=== PATIENT | female | born 1980 | race American Indian/Alaskan Native ===

== ENCOUNTER 2017-12-20 12:14 | Emergency (ER) | payer BC, OTHER ==
[2017-12-20 12:24] VITALS: BP 132/90; PULSE 79; RESP 16; TEMP 98.4; O2SAT 100
--- NOTE | 2017-12-20 12:51 | ED PDOC ---
Lower Extremity Pain/Injury Time Seen by Provider: 12/20/17 12:35 Chief Complaint (Nursing): Lower Extremity Problem/Injury Chief Complaint (Provider): left foot injury History Per: Patient Additional Complaint(s): 37 y/o female presents with superficial laceration to plantar aspect of left foot. Patient stepped on broken glass at 4:30 AM and removed a small piece of glass from the wound. She presents for further evaluation. Patient states tetanus is up-to-date. She denies any foreign body sensation at present. No active bleeding noted. PMD: none Past Medical History Reviewed: Historical Data, Nursing Documentation, Vital Signs Vital Signs: Last Vital Signs Temp 98.4 F 12/20/17 12:22 Pulse 79 12/20/17 12:22 Resp 16 12/20/17 12:22 BP 132/90 12/20/17 12:22 Pulse Ox 100 12/20/17 12:22 - Medical History PMH: No Chronic Diseases - Family History Family History: States: No Known Family Hx - Living Arrangements Living Arrangements: With Family - Social History Current smoker - smoking cessation education provided: No Alcohol: None Drugs: Denies - Immunization History Hx Tetanus Toxoid Vaccination: Yes - Home Medications Home Medications: Ambulatory Orders Medication Instructions Recorded Clindamycin [Cleocin] 300 mg PO TID #21 cap 12/20/17 - Allergies Allergies/Adverse Reactions: Allergies Allergy/AdvReac Type Severity Reaction Status Date / Time No Known Allergies Allergy Verified 12/20/17 12:22 Review of Systems ROS Statement: Except As Marked, All Systems Reviewed And Found Negative Musculoskeletal: Positive for: Foot Pain (left foot open wound) Physical Exam - Reviewed Nursing Documentation Reviewed: Yes Vital Signs Reviewed: Yes - Physical Exam Appears: Positive for: Well, Non-toxic, No Acute Distress Skin: Negative for: Rash Eye Exam: Positive for: Normal appearance Extremity: Positive for: Other (0.5 cm superficial laceration noted to plantar aspect of left foot, no active bleeding, no foreign body noted) Neurologic/Psych: Positive for: Alert, Oriented - ECG O2 Sat by Pulse Oximetry: 100 Pulse Ox Interpretation: Normal - Other Rad Left foot x-ray X-Ray: Interpreted by Me, Viewed By Me X-Ray Interpretation: no fx, no dis, no radiopaque FB Medical Decision Making Medical Decision Makin37 y/o female with wound to left foot Plan: X-ray left foot Pain meds declined Wound is very superficial, no sutures are indicated Case was d/w podiatry resident, Dr. Alejandre, states to irrigate wound and have patient follow up with clinic in 2-3 days. Wound was irrigated with saline and betadine, no FB noted, bandage applied to affected area, N/V intact s/p placement. Advised NSAID's prn pain and follow up with podiatry clinic. Disposition - Clinical Impression Clinical Impression: Open wound of left foot - Patient ED Disposition Is Patient to be Admitted: No Counseled Patient/Family Regarding: Studies Performed, Diagnosis, Need For Followup - Disposition Referrals: Podiatry Clinic [Outside] Disposition: Routine/Home Disposition Time: 13:41 Condition: STABLE Additional Instructions: Wash area daily with soap and water. Tylenol or Advil for pain as needed. Follow -up with podiatry clinic for any persistent symptoms. Prescriptions: Clindamycin [Cleocin] 300 mg PO TID #21 cap Instructions: Wound Care (DC) Forms: [employer] (Uzbek), [facility] ED School/Work Excuse
--- NOTE | 2017-12-20 13:19 | RAD ---
PROCEDURE: Left Foot Radiographs. HISTORY: ? FB COMPARISON: None. FINDINGS: BONES: Inferior plantar spur. . No fracture. Medial sesamoid bipartite - developmental variation JOINTS: Normal. SOFT TISSUES: Normal. OTHER FINDINGS: No radiopaque foreign body noted Achilles tendon insertional enthesophyte noted. IMPRESSION: No radiopaque foreign body. No osseous destruction Other findings -as above.
== END 2017-12-20 13:53 | disposition home or self-care (01) ==
LOC: H.ER 12:14
DX: S91.302A Unspecified open wound, left foot, initial encounter (principal); W25.XXXA Contact with sharp glass, initial encounter; Y92.89 Other specified places as the place of occurrence of the external cause

== ENCOUNTER 2018-02-21 11:17 | Emergency (ER) | payer BC ==
[2018-02-21 11:52] VITALS: RESP 16
--- NOTE | 2018-02-21 12:23 | ED PDOC ---
HPI: Headache Time Seen by Provider: 02/21/18 11:28 Chief Complaint (Nursing): Headache Chief Complaint (Provider): Headache History Per: Patient History/Exam Limitations: no limitations Onset/Duration Of Symptoms: Days, Intermittent Episodes Current Symptoms Are (Timing): Still Present Pain Scale Rating Of: 7 Quality: "Pain" Associated Symptoms: denies: Photophobia, Blurred Vision, Nausea, Vomiting, Extremity Weakness Additional Complaint(s): 37 y/o female with no significant PMHx presents to the ED for evaluation of a frontal headache, onset 3 days ago. Patient reports headache as intermittent with pain rating of a 7/10 associated with mild, intermittent dizziness that worsens with movement. Patient denies taking medications prior to arrival for symptom relief. Otherwise: (-) history of similar headache, (-) fall, (-) trauma , (-) fever, (-) chills, (-) neck pain, (-) stiffness, (-) nausea, (-) vomiting , (-) diarrhea, (-) throat pain, (-) ear pain, (-) cough, (-) shortness of breath, (-) sick contacts, (-) abdominal pain, (-) weakness, (-) numbness, (-) visual changes, (-) photophobia, (-) phonophobia. PMD: Jose[place] LNMP: 02/14/2018 Past Medical History Reviewed: Historical Data, Nursing Documentation, Vital Signs Vital Signs: Last Vital Signs Temp 98.3 F 02/21/18 11:49 Pulse 81 02/21/18 11:49 Resp 16 02/21/18 11:49 BP 156/92 H 02/21/18 11:49 Pulse Ox 99 02/21/18 11:49 - Medical History PMH: No Chronic Diseases - Surgical History Other surgeries: Right Foot Procedure for fracture - Family History Family History: States: Diabetes Denies: Stroke - Social History Current smoker - smoking cessation education provided: Yes (5 cigarettes per day ) Alcohol: Social Drugs: Denies - Home Medications Home Medications: Ambulatory Orders Medication Instructions Recorded Clindamycin [Cleocin] 300 mg PO TID #21 cap 12/20/17 Meclizine [Meclizine*] 25 mg PO Q6 PRN #12 tab 02/21/18 Naproxen 500 mg PO BID PRN #20 tab 02/21/18 - Allergies Allergies/Adverse Reactions: Allergies Allergy/AdvReac Type Severity Reaction Status Date / Time No Known Allergies Allergy Verified 12/20/17 12:22 Review of Systems ROS Statement: Except As Marked, All Systems Reviewed And Found Negative Constitutional: Negative for: Fever, Chills Eyes: Negative for: Vision Change ENT: Negative for: Ear Pain, Throat Pain Respiratory: Negative for: Cough, Shortness of Breath Gastrointestinal: Negative for: Nausea, Vomiting, Abdominal Pain, Diarrhea Musculoskeletal: Negative for: Neck Pain (and stiffness) Neurological: Positive for: Headache, Dizziness. Negative for: Weakness, Numbness Physical Exam - Reviewed Nursing Documentation Reviewed: Yes Vital Signs Reviewed: Yes - Physical Exam Comments: GENERAL APPEARANCE: Patient is awake, alert, oriented x 3, in no acute distress. Resting comfortably, on cell phone. SKIN: Warm, dry; (-) cyanosis; (-) rash. HEAD: (-) scalp swelling or tenderness, (-) temporal artery tenderness. EYES: EOMI and painless (-) conjunctival pallor, (-) scleral icterus. ENMT: (-) sinus tenderness; mucous membranes are moist. Pharynx clear, uvula midline (-) erythema (-) exudate. TMs: Nonbulging and nonerythematous bilaterally. Nares patent. NECK: Supple, FROM (-) tenderness, (-) stiffness, (-) meningismus, (-) lymphadenopathy. CHEST AND RESPIRATORY: (-) rales, (-) rhonchi, (-) wheezes; breath sounds equal bilaterally. Respirations even and nonlabored. HEART AND CARDIOVASCULAR: (-) irregularity; (-) murmur ABDOMEN AND GI: Soft; (-) tenderness (-) rebound (-) distention (-) guarding (- ) CVA tenderness. EXTREMITIES: (-) deformity. NEURO AND PSYCH: Mental status as above. rose grading supervisor: Pupils equal and reactive; (-) facial asymmetry; tongue midline. Smile symmetric. Strength symmetric. Gait steady, speech clear. - Laboratory Results Result Diagrams: 02/21/18 12:50 02/21/18 12:50 Urine POC: Negative Urine dip results: Positive for: Blood (small), Protein (100). Negative for: Leukocyte Esterase, Nitrate, Ketones, Glucose, Bilirubin - ECG ECG Rhythm: Positive for: Sinus Rhythm Interpretation Of ECG: QTc at 449. No ectopy. No ST elevation Rate: 71 O2 Sat by Pulse Oximetry: 99 (RA) Pulse Ox Interpretation: Normal Medical Decision Making Medical Decision Making: Time: 1157 Impression: Headache and dizziness Plan: -- CT Head w/o contrast -- EKG -- Antivert 25 mg PO -- Tylenol 650 mg PO -- Blueprint Processor -- IV Insertion -- Glucose, Blood, POC -- CBC with differential -- ED Urine Dipstick -- ED Urine -- BMP UPreg: Negative Udip reviewed. U/A and U/c ordered for further evaluation of hematuria. Fingerstick: 92 Time: 1330 CBC unremarkable. Urinalysis: (+) hematuria. Patient reports no history of kidney stones, UTI, or renal disease. Patient denies all urinary complaints at this time. Follow up with PMD at [place] or urology referral encouraged for further evaluation of hematuria. CT reviewed, radiology report follows Date of service: 02/21/2018 PROCEDURE: CT HEAD WITHOUT CONTRAST. HISTORY: headache COMPARISON: None available. TECHNIQUE: Axial computed tomography images were obtained through the head/brain without intravenous contrast. Radiation dose: Total exam DLP = 776.93 mGy-cm. This CT exam was performed using one or more of the following dose reduction techniques: Automated exposure control, adjustment of the mA and/or kV according to patient size, and/or use of iterative reconstruction technique. FINDINGS: HEMORRHAGE: No intracranial hemorrhage. BRAIN: No mass effect or edema. No atrophy or chronic microvascular ischemic changes. VENTRICLES: Unremarkable. No hydrocephalus. CALVARIUM: No acute calvarial fractures. Questionable small right frontal scalp scar. PARANASAL SINUSES: Mild mucosal thickening seen within the ethmoid air complex. MASTOID AIR CELLS: Unremarkable as visualized. No inflammatory changes. OTHER FINDINGS: None. IMPRESSION: No acute intracranial hemorrhage. Time: 1355 BMP unremarkable. Repeat BP: 145/82 On re-evaluation, patient reports improvement of symptoms. On exam, patient remains AAOx3, in no acute distress. Lungs clear to auscultation, cardiac RRR, abdomen soft, non-tender, repeat neuro exam shows no focal findings. Lab/Diagnostic results d/w the patient in great detail. Diagnosis of headache, hematuria d/w the patient. Based on history, exam and diagnostic results, plan will be for outpatient follow up. Patient instructed to follow-up with pmd / referral provided / the clinic in 1- 2 days without fail. Advised to take medication as prescribed. Return to the emergency room at any time for any new or worsening symptoms. Patient states she fully agrees with and understands discharge instructions. States that she agrees with the plan and disposition. Verbalized and repeated discharge instructions and plan. I have given the patient opportunity to ask any additional questions. Scribe Attestation: Documented by Trudy Pyle acting as a scribe for Sigrid Roy PA-C. Provider Scribe Attestation: All medical record entries made by the Scribe were at my direction and personally dictated by me. I have reviewed the chart and agree that the record accurately reflects my personal performance of the history, physical exam, medical decision making, and the department course for this patient. I have also personally directed, reviewed, and agree with the discharge instructions and disposition. Disposition - Clinical Impression Clinical Impression: Headache, Dizziness, Hematuria - Patient ED Disposition Is Patient to be Admitted: No Counseled Patient/Family Regarding: Studies Performed, Diagnosis, Need For Followup, Rx Given - Disposition Referrals: Alec Adler MD [Medical Doctor] - Disposition: Routine/Home Disposition Time: 14:25 Condition: IMPROVED Additional Instructions: FOLLOW UP WITH PMD/UROLOGY. The emergency medical care you received today was directed at your acute symptoms. If you were prescribed any medication, please fill it and take as directed. It may take several days for your symptoms to resolve. Return to the Emergency Department if your symptoms worsen, do not improve, or if you have any other problems. Please contact your doctor in 2 days for re-evaluation and follow up / or call one of the physicians/clinics you have been referred to that are listed on the Patient Visit Information form that is included in your discharge packet. Bring any paperwork you were given at discharge with you along with any medications you are taking to your follow up visit. Our treatment cannot replace ongoing medical care by a primary care provider (PCP) outside of the emergency department. Thank you for allowing the [facility] team to be part of your care today. If you had a urine / blood culture test done : We will call you regarding any positive results Prescriptions: Meclizine [Meclizine*] 25 mg PO Q6 PRN #12 tab PRN Reason: Dizziness Naproxen 500 mg PO BID PRN #20 tab PRN Reason: Headache Instructions: Blood in the Urine (Hematuria) in Adults, Headache, Adult, Dizziness, Nonvertigo, (DC) Forms: [employer] (Belizean) Print Language: BURKINAN - POA Present On Arrival: None Results - Lab Results Lab Results: 02/21/18 02/21/18 02/21/18 12:50 12:50 12:50 WBC 6.6 RBC 4.23 Hgb 12.6 Hct 37.6 MCV 88.9 MCH 29.7 MCHC 33.4 RDW 12.8 Plt Count 271 MPV 8.6 Neut % (Auto) 55.6 Lymph % (Auto) 33.5 Mason % (Auto) 7.0 Eos % (Auto) 2.9 Baso % (Auto) 1.0 Neut # (Auto) 3.7 Lymph # (Auto) 2.2 Mason # (Auto) 0.5 Eos # (Auto) 0.2 Baso # (Auto) 0.1 Sodium 141 Potassium 4.0 Chloride 106 Carbon Dioxide 24 Anion Gap 15 BUN 18 H Creatinine 0.5 L Est GFR ( Amer) > 60 Est GFR (Non-Af Amer) > 60 POC Glucose (mg/dL) Random Glucose 87 Calcium 9.2 Urine Color Yellow Urine Clarity Turbid Urine pH 5.0 Ur Specific [place] 1.033 H Urine Protein 100 Urine Glucose (UA) Neg Urine Ketones Negative Urine Blood Small Urine Nitrate Negative Urine Bilirubin Negative Urine Urobilinogen 0.2-1.0 Ur Leukocyte Esterase Neg Urine RBC (Auto) 11 H Urine Microscopic WBC 1 Amorphous Sediment Moderate H 02/21/18 12:23 WBC RBC Hgb Hct MCV MCH MCHC RDW Plt Count MPV Neut % (Auto) Lymph % (Auto) Mason % (Auto) Eos % (Auto) Baso % (Auto) Neut # (Auto) Lymph # (Auto) Mason # (Auto) Eos # (Auto) Baso # (Auto) Sodium Potassium Chloride Carbon Dioxide Anion Gap BUN Creatinine Est GFR ( Amer) Est GFR (Non-Af Amer) POC Glucose (mg/dL) 92 Random Glucose Calcium Urine Color Urine Clarity Urine pH Ur Specific [place] Urine Protein Urine Glucose (UA) Urine Ketones Urine Blood Urine Nitrate Urine Bilirubin Urine Urobilinogen Ur Leukocyte Esterase Urine RBC (Auto) Urine Microscopic WBC Amorphous Sediment
--- NOTE | 2018-02-21 13:10 | CT ---
Date of service: 02/21/2018 PROCEDURE: CT HEAD WITHOUT CONTRAST. HISTORY: headache COMPARISON: None available. TECHNIQUE: Axial computed tomography images were obtained through the head/brain without intravenous contrast. Radiation dose: Total exam DLP = 776.93 mGy-cm. This CT exam was performed using one or more of the following dose reduction techniques: Automated exposure control, adjustment of the mA and/or kV according to patient size, and/or use of iterative reconstruction technique. FINDINGS: HEMORRHAGE: No intracranial hemorrhage. BRAIN: No mass effect or edema. No atrophy or chronic microvascular ischemic changes. VENTRICLES: Unremarkable. No hydrocephalus. CALVARIUM: No acute calvarial fractures. Questionable small right frontal scalp scar. PARANASAL SINUSES: Mild mucosal thickening seen within the ethmoid air complex. MASTOID AIR CELLS: Unremarkable as visualized. No inflammatory changes. OTHER FINDINGS: None. IMPRESSION: No acute intracranial hemorrhage.
[2018-02-21 13:24] LABS: BASO # 0.1 K/uL (0.0-0.2); EOS # 0.2 K/uL (0.0-0.7); EOS % 2.9 % (0.0-4.0); HEMOGLOBIN 12.6 g/dL (12.0-16.0); LYMPH # 2.2 K/uL (1.0-4.3); LYMPH % 33.5 % (20.0-40.0); MEAN CELL VOLUME 88.9 fl (81.0-99.0); MEAN CORPUSCULAR HEMOGLOBIN 29.7 pg (27.0-31.0); MEAN CORPUSCULAR HGB CONC 33.4 g/dL (33.0-37.0); MEAN PLATELET VOLUME 8.6 fl (7.2-11.7); MONO # 0.5 K/uL (0.0-0.8); NEUT # 3.7 K/uL (1.8-7.0); NEUT % 55.6 % (50.0-75.0); NRBC % 0.1 % (0.0-0.0); RBC 4.23 Mil/uL (3.80-5.20); RED CELL DISTRIBUTION WIDTH 12.8 % (11.5-14.5); WHITE BLOOD COUNT 6.6 K/uL (4.8-10.8)
[2018-02-21 13:29] LABS: URINE AMORPHOUS SEDIMENT MODERATE /ul (<OCC); URINE BILIRUBIN NEGATIVE (NEGATIVE); URINE BLOOD SMALL (NEGATIVE); URINE CLARITY TURBID (Clear); URINE COLOR YELLOW (YELLOW); URINE GLUCOSE (UA) NEG (Normal); URINE LEUKOCYTE ESTERASE NEG Leu/uL (Negative); URINE PROTEIN 100 mg/dL (NEGATIVE); URINE UROBILINOGEN 0.2-1.0 mg/dL (0.2-1.0)
[2018-02-21 13:35] LABS: BLOOD UREA NITROGEN 18 mg/dl (7-17); CALCIUM 9.2 mg/dL (8.4-10.2); GFR AFRICAN-AMERICAN > 60; GFR NON-AFRICAN AMERICAN > 60
[2018-02-21 15:39] VITALS: BP 145/82; TEMP 98.4
[2018-02-21 15:44] VITALS: PULSE 71; O2SAT 99
--- NOTE | 2018-02-21 16:29 | CARD ---
APPROVED REPORT Date of service: 02/21/2018 EKG Measurement Heart [id number] <Conclusion> Normal sinus rhythm Normal ECG
== END 2018-02-21 15:39 | disposition home or self-care (01) ==
LOC: H.ER 11:17
DX: R51 Headache (principal); R42 Dizziness and giddiness; R31.9 Hematuria, unspecified